=== PATIENT | female | born 1980 | race Native Hawaiian/Other Pacific Islander ===

== ENCOUNTER 2017-04-21 14:16 | Emergency (ER) | payer OTHER ==
[~2017-04-21] VITALS: Ht 160 cm; Wt 65.8 kg
[2017-04-21 16:36] LABS: PLATELET COUNT 342 K/uL (152-353)
[2017-04-21 16:43] LABS: POTASSIUM 3.6 mmol/L (3.6-5.2); SODIUM 139 mmol/L (136-145)
== END 2017-04-21 17:57 | disposition home or self-care (01) ==
LOC: ED 14:16
PROVIDERS: Specialist
DX: F32.89 Other specified depressive episodes (principal); F28 Other psychotic disorder not due to a substance or known physiological condition
CPT/HCPCS: 36415; 80053; 80307; 81000; 81025; 85027; 99283; G0479

== ENCOUNTER 2017-12-01 14:09 | Emergency (ER) | payer OTHER ==
[~2017-12-01] VITALS: Ht 160 cm; Wt 65.8 kg
== END 2017-12-01 14:41 | disposition home or self-care (01) ==
LOC: ED 14:09
DX: R50.9 Fever, unspecified (principal); R05 Cough; R07.89 Other chest pain
CPT/HCPCS: 99281

== ENCOUNTER 2022-10-28 09:33 | Outpatient (CLI) | payer OTHER | END 2022-10-28 19:19 | disposition home or self-care (01) | LOC: CT 09:33 | PROVIDERS: ATTEND Nurse Practitioner Family | DX: K43.2 Incisional hernia without obstruction or gangrene (principal) | CPT/HCPCS: 36415; 82565; 84520; Q9963 ==